=== PATIENT | male | born 1945 | race Caucasian/White ===

== ENCOUNTER → 2022-01-12 | Outpatient (CLI) | payer MEDICARE, BC ==
[~2022-01-12] MED LIST: ASPIRIN 81M81 MG/TA2 PO; EPA FISH OIL1000 MG PO; HCTZ 25MG TAB25 MG PO; MASON NATURAL2000 IU PO; NIACIN1000 MG PO; NIASPAN1000 MG PO; SUPER EPA 2002000 MG PO; VITAMIN D2000 I1 PO; ZOCOR 40MG40 MG PO
== END ==
LOC: COL.RAD 07:26
DX: Z12.2 Encounter for screening for malignant neoplasm of respiratory organs (principal); K44.9 Diaphragmatic hernia without obstruction or gangrene; Z87.891 Personal history of nicotine dependence